=== PATIENT | male | born 1985 | race African-American/Black ===

== ENCOUNTER 2018-01-17 16:59 | Emergency (ER) | payer OTHER ==
[2018-01-17] MEDS: DERMABOND TOPICAL SKIN ADHESIVE TOP (20:00)
== END 2018-01-17 20:21 | disposition home or self-care (01) ==
LOC: M ED 16:59
DX: S61.412A Laceration without foreign body of left hand, initial encounter (principal); W26.0XXA Contact with knife, initial encounter; Y92.099 Unspecified place in other non-institutional residence as the place of occurrence of the external cause; Y93.89 Activity, other specified; M51.9 Unspecified thoracic, thoracolumbar and lumbosacral intervertebral disc disorder
CPT/HCPCS: 12002

== ENCOUNTER 2019-07-04 15:26 | Emergency (ER) | payer OTHER ==
[~2019-07-04] VITALS: Ht 188 cm; Wt 88.4 kg
[~2019-07-04 15:26] MED LIST: ALBUTEROL INH; CYMB1CAP5 OR; GABA600T3 OR; LIDO5DIS EX; LIDO5DIS TOP; MELOPOW PO; NEUR300C OR; TRAM50TA2 OR; VOLT1GEL EX
[2019-07-04] MEDS ORDERED: DERMABOND TOPICAL SKIN ADHESIVE TOP ONE (17:30)
[2019-07-04] MEDS ORDERED: ADACEL/BOOSTRIX VACCINE (DIPHTH/PERTUSS/ACELL/TETANUS)0.5ML SYR (90715) IM ONE (17:30)
[2019-07-04 18:02] VITALS: BP 121/81
== END 2019-07-04 18:09 | disposition home or self-care (01) ==
LOC: M ED 15:26
DX: S61.214A Laceration without foreign body of right ring finger without damage to nail, initial encounter (principal); W26.8XXA Contact with other sharp object(s), not elsewhere classified, initial encounter; Y92.89 Other specified places as the place of occurrence of the external cause; Y93.89 Activity, other specified; Y99.0 Civilian activity done for income or pay; F17.200 Nicotine dependence, unspecified, uncomplicated

== ENCOUNTER 2019-07-21 09:10 | Emergency (ER) | payer OTHER ==
[~2019-07-21] VITALS: Ht 188 cm; Wt 87.7 kg
[2019-07-21] MEDS ORDERED: NAPR375T4 PO (09:57)
[2019-07-21] MEDS ORDERED: ARTICAINE HCL/EPINEPHRINE 4%-1:200,000 1.7ML INJ (SEPTOCAINE) SM ONE (10:15)
[2019-07-21 10:47] LABS: BASO # 0.1 10^3/uL (0.0-0.2); BASO % 0.6 % (0.0-1.0); EOS # 0.3 10^3/uL (0.0-0.5); EOS % 2.5 % (0.0-3.0); HEMATOCRIT 43.6 % (42.0-52.0); HEMOGLOBIN 14.7 g/dl (13.5-17.5); LYMPH # 1.8 10^3/uL (1.5-5.0); LYMPH % 15.6 % (24.0-44.0); MEAN CORPUSCULAR HEMOGLOBIN 31.1 pg (27.0-33.0); MEAN CORPUSCULAR HGB CONC 33.7 g/dl (32.0-36.5); MEAN CORPUSCULAR VOLUME 92.2 fl (80.0-96.0); MONO # 1.1 10^3/uL (0.0-0.8); MONO % 9.4 % (0.0-5.0); NEUTROPHILS # 8.1 10^3/uL (1.5-8.5); NEUTROPHILS % 71.6 % (36.0-66.0); PLATELET COUNT, AUTOMATED 164 10^3/uL (150-450); RED BLOOD COUNT 4.73 10^6/uL (4.30-6.10); WHITE BLOOD COUNT 11.3 10^3/uL (4.0-10.0)
[2019-07-21] MEDS ORDERED: ISOVUE-370 76% 100ML VIAL (Q9967) As Ordered ONE (10:53)
[2019-07-21 11:13] LABS: ERYTHROCYTE SEDIMENTATION RATE 3 mm/hr (0-15)
--- NOTE | 2019-07-21 11:30 | REP ---
CT face: 07/21/2019. Indication: Left facial swelling. Comparison: None. Technique: Axial images of the face were obtained following IV administration of 75 ml Isovue 370. Sagittal and coronal reconstructions were provided. Findings: There are no fluid collections. No acute ocular, intraorbital or intracranial abnormalities are present. Left maxillary retention cyst is present. The mastoid air cells are clear. Minimal inflammatory sequelae of the left facial soft tissues are noted. No significant vascular abnormalities are detected. Impression: Minimal soft tissue inflammatory sequelae without abscess. Electronically Signed by Maycol Dillon DO 07/21/2019 11:21 A
[2019-07-21] MEDS ORDERED: IBUP80TA PO (12:22)
[2019-07-21] MEDS ORDERED: AUGM875T28 PO (12:22)
[2019-07-21 12:23] VITALS: BP 133/85
== END 2019-07-21 12:27 | disposition home or self-care (01) ==
LOC: M ED 10:13
DX: K02.9 Dental caries, unspecified (principal); K05.00 Acute gingivitis, plaque induced; K08.89 Other specified disorders of teeth and supporting structures; F17.200 Nicotine dependence, unspecified, uncomplicated; Z79.899 Other long term (current) drug therapy
CPT/HCPCS: 64400; 70487; 80047; 85025; 85652; 86140; 87040; 99283; Q9967

== ENCOUNTER 2019-10-03 15:16 | Emergency (ER) | payer OTHER ==
[~2019-10-03] VITALS: Ht 188 cm; Wt 89.1 kg
[~2019-10-03 15:16] MED LIST changes: +AUGM875T28 PO; +IBUP80TA PO; +NAPR375T4 PO
[2019-10-03 16:56] VITALS: BP 123/77
== END 2019-10-03 16:58 | disposition home or self-care (01) ==
LOC: M ED 15:16
DX: R20.2 Paresthesia of skin (principal); G89.29 Other chronic pain; M54.9 Dorsalgia, unspecified; F17.200 Nicotine dependence, unspecified, uncomplicated

== ENCOUNTER 2020-05-05 16:17 | Emergency (ER) | payer OTHER ==
[~2020-05-05] VITALS: Ht 188 cm; Wt 92.4 kg
--- NOTE | 2020-05-05 17:01 | REPVR ---
PROCEDURE INFORMATION: Exam: XR Right Hip with Pelvis when Performed Exam date and time: 05/05/2020 4:46 PM Age: 34 years old Clinical indication: Hip pain; Right hip; Additional info: R/O dislocation TECHNIQUE: Imaging protocol: XR Right hip with pelvis when performed. Views: 2 or 3 views. COMPARISON: None provided. FINDINGS: Bones/joints: No acute fracture or dislocation is identified. The femoral head articular contour is maintained, and the femoral head appears to be of normal density. No focal lytic or blastic lesion is identified. Soft tissues: Phleboliths overlie the pelvis. IMPRESSION: No acute fracture or dislocation identified. Electronically signed by: Enzo Guerrier On 05/05/2020 17:01:16 PM
[2020-05-05] MEDS ORDERED: NAPR-837 PO (18:41)
[2020-05-05 18:46] VITALS: BP 141/103
== END 2020-05-05 18:47 | disposition home or self-care (01) ==
LOC: M ED 16:17
DX: M54.16 Radiculopathy, lumbar region (principal); M25.551 Pain in right hip; F17.200 Nicotine dependence, unspecified, uncomplicated; M19.90 Unspecified osteoarthritis, unspecified site; G83.10 Monoplegia of lower limb affecting unspecified side

== ENCOUNTER 2020-07-04 05:57 | Emergency (ER) | payer OTHER ==
[~2020-07-04] VITALS: Ht 188 cm; Wt 92.9 kg
[~2020-07-04 05:57] MED LIST changes: +NAPR-837 PO
[2020-07-04] MEDS ORDERED: KETOROLAC 60MG 2ML VIAL IM ONE (06:30)
--- NOTE | 2020-07-04 07:15 | REPVR ---
PROCEDURE INFORMATION: Exam: XR Right Scapula Exam date and time: 07/04/2020 6:43 AM Age: 34 years old Clinical indication: Other: Difficulty moving shoulder, bony tender TECHNIQUE: Imaging protocol: XR Right scapula, complete. COMPARISON: No relevant prior studies available. FINDINGS: Bones/joints: No acute fracture is identified. An os acromiale is noted. Soft tissues: The soft tissues appear grossly unremarkable. IMPRESSION: No acute fracture identified. Electronically signed by: Enzo Guerrier On 07/04/2020 07:14:58 AM
--- NOTE | 2020-07-04 07:15 | REPVR ---
PROCEDURE INFORMATION: Exam: XR Right Shoulder Exam date and time: 07/04/2020 6:43 AM Age: 34 years old Clinical indication: Other: Injury TECHNIQUE: Imaging protocol: XR Right shoulder. Views: 2 or more views. COMPARISON: No relevant prior studies available. FINDINGS: Bones/joints: No acute fracture or dislocation is identified. An os acromiale is noted. Soft tissues: The soft tissues appear grossly unremarkable. IMPRESSION: No acute fracture or dislocation identified. Electronically signed by: Enzo Guerrier On 07/04/2020 07:15:18 AM
[2020-07-04 07:49] VITALS: BP 135/60
== END 2020-07-04 07:59 | disposition home or self-care (01) ==
LOC: M ED 05:57
DX: M25.511 Pain in right shoulder (principal); M54.30 Sciatica, unspecified side; M51.35 Other intervertebral disc degeneration, thoracolumbar region; F41.9 Anxiety disorder, unspecified; F32.9 Major depressive disorder, single episode, unspecified; F17.200 Nicotine dependence, unspecified, uncomplicated; Z91.018 Allergy to other foods
CPT/HCPCS: 73010; 73030; 96372; 99284; J1885

== ENCOUNTER 2021-08-03 13:15 | Emergency (ER) | payer OTHER ==
[~2021-08-03] VITALS: Ht 188 cm; Wt 92.0 kg
[2021-08-03 15:02] LABS: BASO # 0.1 10^3/uL (0.0-0.2); BASO % 0.5 % (0.0-1.0); EOS # 0.1 10^3/uL (0.0-0.5); EOS % 1.3 % (0.0-3.0); HEMATOCRIT 45.7 % (42.0-52.0); HEMOGLOBIN 15.6 g/dl (13.5-17.5); LYMPH # 2.3 10^3/uL (1.5-5.0); LYMPH % 23.3 % (24.0-44.0); MEAN CORPUSCULAR HEMOGLOBIN 30.2 pg (27.0-33.0); MEAN CORPUSCULAR HGB CONC 34.1 g/dl (32.0-36.5); MEAN CORPUSCULAR VOLUME 88.6 fl (80.0-96.0); MONO # 0.8 10^3/uL (0.0-0.8); MONO % 8.5 % (2.0-8.0); NEUTROPHILS # 6.5 10^3/uL (1.5-8.5); NEUTROPHILS % 66.2 % (36.0-66.0); PLATELET COUNT, AUTOMATED 166 10^3/uL (150-450); RED BLOOD COUNT 5.16 10^6/uL (4.30-6.10); WHITE BLOOD COUNT 9.9 10^3/uL (4.0-10.0)
[2021-08-03 15:19] LABS: BLOOD UREA NITROGEN 13 MG/DL (7-18); CALCIUM LEVEL 9.1 MG/DL (8.5-10.1); CARBON DIOXIDE LEVEL 30 MEQ/L (21-32); CHLORIDE LEVEL 106 MEQ/L (98-107); CREATININE FOR GFR 1.04 MG/DL (0.70-1.30); GLOMERULAR FILTRATION RATE > 60.0 (>60); GLUCOSE, FASTING 93 MG/DL (70-100); POTASSIUM SERUM 4.3 MEQ/L (3.5-5.1); SODIUM LEVEL 140 MEQ/L (136-145)
--- NOTE | 2021-08-03 17:03 | REP ---
INDICATION: R flank pain COMPARISON: None TECHNIQUE: Axial noncontrast images from the lung bases to the pubic symphysis with coronal and sagittal reformations. This CT examination was performed using the following dose reduction techniques: Automated exposure control, adjustment of mA and/or kv according to the patient's size, and use of iterative reconstruction technique. FINDINGS: Lung bases are clear. Visualized heart and pericardium normal. Liver, spleen, pancreas, gallbladder, bilateral adrenal glands and kidneys are normal. Specifically, no perinephric stranding, hydroureteronephrosis or nephroureterolithiasis. The enteric system is unremarkable and without obstruction or acute inflammatory process. Normal terminal ileum and appendix identified in the right lower quadrant. Pelvis demonstrates normal bladder and age-appropriate prostate/seminal vesicles. No ascites. No free air. No adenopathy. No focal inflammatory stranding. Abdominal aorta without aneurysm. Musculoskeletal structures are intact and without acute osseous abnormality. IMPRESSION: No acute abdominopelvic pathology appreciated. <Electronically signed by Filippo Jensen > 08/03/21 [id number]
[2021-08-03] MEDS: KETOROLAC 60MG 2ML VIAL IM ONE (17:15)
[2021-08-03 17:33] VITALS: BP 121/78
== END 2021-08-03 17:46 | disposition home or self-care (01) ==
LOC: M ED 13:15
DX: R10.9 Unspecified abdominal pain (principal); J45.909 Unspecified asthma, uncomplicated; F17.200 Nicotine dependence, unspecified, uncomplicated; Z91.018 Allergy to other foods
CPT/HCPCS: 74176; 80048; 81001; 85025; 96372; 99283; J1885